=== PATIENT | female | born 1970 ===

== ENCOUNTER 2018-11-07 09:31 | Emergency (ER) | payer OTHER ==
[2018-11-07 09:37] VITALS: RESP 18; TEMP 97.9; O2SAT 99
--- NOTE | 2018-11-07 10:23 | ED PDOC ---
HPI: Back Time Seen by Provider: 11/07/18 09:57 Chief Complaint (Nursing): Back Pain Chief Complaint (Provider): Back Pain History Per: Patient, [facility] ([id number]) History/Exam Limitations: no limitations Onset/Duration Of Symptoms: Worse Since (2 weeks ago) Additional Complaint(s): 48 years old female presents to ER for evaluation of worsening lower back pain onset 2 weeks. Patient reports she had a mechanical slip and fall 2 weeks ago where she fell on her buttocks and lower back, and jumped up quickly. She states she had immediate pain s/p the fall. Patient reports she went to [facility] where she was prescribed Naproxen but pain has been worsening. She reports shooting pain down the left leg and states she has been unable to sleep at night. Patient denies any urinary incontinent or retention or allergies. PMD: [facility] Past Medical History Reviewed: Historical Data, Nursing Documentation, Vital Signs Vital Signs: Last Vital Signs Temp 97.9 F 11/07/18 09:36 Pulse 82 11/07/18 09:36 Resp 18 11/07/18 09:36 BP 168/80 H 11/07/18 09:36 Pulse Ox 99 11/07/18 09:36 - Medical History PMH: No Chronic Diseases - Surgical History Surgical History: No Surg Hx - Family History Family History: States: Unknown Family Hx - Social History Current smoker - smoking cessation education provided: No Alcohol: Social Drugs: Denies - Allergies Allergies/Adverse Reactions: Allergies Allergy/AdvReac Type Severity Reaction Status Date / Time No Known Allergies Allergy Verified 11/07/18 10:13 Review of Systems ROS Statement: Except As Marked, All Systems Reviewed And Found Negative Genitourinary Female: Negative for: Other (Urinary incontinent or retention) Musculoskeletal: Positive for: Back Pain (Lower), Other (Sacrum pain) Physical Exam - Reviewed Nursing Documentation Reviewed: Yes Vital Signs Reviewed: Yes - Physical Exam Appears: Positive for: Well, No Acute Distress Head Exam: Positive for: ATRAUMATIC, NORMOCEPHALIC Skin: Positive for: Normal Color, Warm, Dry Cardiovascular/Chest: Positive for: Regular Rate, Rhythm. Negative for: Murmur Respiratory: Positive for: Normal Breath Sounds. Negative for: Respiratory Distress Back: Positive for: Other (Tenderness to palpation of lumbar spine and sacrum) Extremity: Positive for: Other (Pain at the hip with staight leg raise of left leg. No pain to right leg or numbness to either extremities.) Neurologic/Psych: Positive for: Alert, Oriented (x3) - ECG O2 Sat by Pulse Oximetry: 99 (RA) Pulse Ox Interpretation: Normal Medical Decision Making Medical Decision Making: Time: 1015 MDM: Workup for spinal injury due to a mechanical fall --CT lumbar spine --Toradol for pain 1053 CT Lumbar FINDINGS: VERTEBRAE: Unremarkable. No fracture. Normal alignment. DISCS/SPINAL CANAL/NEURAL FORAMINA: L1-2: Unremarkable. L2-3: Unremarkable. L3-4: Unremarkable. 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 L5-S1: Central disc herniation with anterior epidural fat indentation. PARASPINAL SOFT TISSUES: Unremarkable. OTHER FINDINGS: 2.7 centimeter right ovarian cystic lesion for which follow-up pelvic ultrasound in 2-3 months is recommended. IMPRESSION: No fracture. 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 L5-S1: Central disc herniation with anterior epidural fat indentation. 1121 --CT shows disc herniation without spinal cord compression --Patient to be discharge with a prescription of Naproxen --Patient will follow up with PMD --Discussed probable need for behavioral specialist --Return parameters discussed Scribe Attestation: Documented by Randa Herrera, acting as a scribe for Gillian Francis MD. Provider Scribe Attestation: All medical record entries made by the Scribe were at my direction and personally dictated by me. I have reviewed the chart and agree that the record accurately reflects my personal performance of the history, physical exam, medical decision making, and the department course for this patient. I have also personally directed, reviewed, and agree with the discharge instructions and disposition. Disposition - Clinical Impression Clinical Impression: Disc herniation - Patient ED Disposition Is Patient to be Admitted: No - Disposition Disposition: Routine/Home Disposition Time: 11:21 Condition: IMPROVED Forms: [facility] (Estonian)
--- NOTE | 2018-11-07 10:57 | CT ---
Date of service: 11/07/2018 PROCEDURE: CT Lumbar Spine without contrast HISTORY: pain to lumbar and sacral spine COMPARISON: None available. TECHNIQUE: Axial computed tomography images were obtained of the lumbar spine without the use of intravenous contrast. Coronal and sagittal reformatted images were created and reviewed. Radiation dose: Total exam DLP = 594.41 mGy-cm. This CT exam was performed using one or more of the following dose reduction techniques: Automated exposure control, adjustment of the mA and/or kV according to patient size, and/or use of iterative reconstruction technique. FINDINGS: VERTEBRAE: Unremarkable. No fracture. Normal alignment. DISCS/SPINAL CANAL/NEURAL FORAMINA: L1-2: Unremarkable. L2-3: Unremarkable. L3-4: Unremarkable. 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 L5-S1: Central disc herniation with anterior epidural fat indentation. PARASPINAL SOFT TISSUES: Unremarkable. OTHER FINDINGS: 2.7 centimeter right ovarian cystic lesion for which follow-up pelvic ultrasound in 2-3 months is recommended. IMPRESSION: No fracture. 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 L5-S1: Central disc herniation with anterior epidural fat indentation.
[2018-11-07 11:36] VITALS: BP 119/62; PULSE 80
== END 2018-11-07 11:30 | disposition home or self-care (01) ==
LOC: H.ER 09:31
DX: M51.26 Other intervertebral disc displacement, lumbar region (principal)
CPT/HCPCS: 72131; 81025; 96372; 99284; J1885